=== PATIENT | male | born 1955 | race Caucasian/White ===

== ENCOUNTER 2021-06-11 07:19 | Day surgery (SDC) | payer MEDICARE, OTHER ==
[~2021-06-11 07:19] MED LIST: Midazolam 1 MG/ML 2 ML SDV ONE; Propofol 200 MG/20 ML SDV ONE; fentaNYL 100 MCG/2 ML SDV ONE
[2021-06-11] MEDS ORDERED: Sodium Chloride 0.9% 1,000 ML IV SCH (08:30)
--- NOTE | 2021-06-14 08:49 | OR ---
DATE OF PROCEDURE: 06/11/2021 SURGEON: Tutu Silva MD PROCEDURE PERFORMED: Colonoscopy. FINDINGS: Transverse colon polyp, approximately 5 mm, completely removed using cold biopsy forceps. COMPLICATIONS: None. GRADER OPERATOR: None. ANESTHESIA: MAC. PREOPERATIVE DIAGNOSIS: Screening colonoscopy. POSTOPERATIVE DIAGNOSIS: Screening colonoscopy. RISKS: Risks, benefits, alternatives, and limitations including, but not limited to infection, bleeding, perforation, false positives, and false negatives were explained to the patient who wished to proceed. PROCEDURE IN DETAIL: The patient was placed in the left lateral decubitus position. Digital rectal exam was performed without abnormality. Scope was introduced and advanced atraumatically to the ileocecal valve. A photo was taken. The scope was brought back to the ascending, transverse, descending colon, and retroflexed. No evidence of old or new blood. No masses. Within the transverse colon, the aforementioned polyp was identified and completely removed using cold biopsy forceps. No diverticulosis. No abnormalities on retroflex. Greater than 8 minutes was spent removing the scope. The prep was acceptable. Approximately 90% of the luminal surface could be seen. Tutu Silva MD /[id number]
== END 2021-06-11 11:05 | disposition home or self-care (01) ==
LOC: JP.SDS 07:19
PROVIDERS: ATTEND Surgery
DX: Z12.11 Encounter for screening for malignant neoplasm of colon (principal); D12.3 Benign neoplasm of transverse colon
CPT/HCPCS: 45380; J2250; J2704; J3010; J7030; 88305

== ENCOUNTER 2024-05-23 06:24 | Day surgery (SDC) | payer MEDICARE ==
[2024-05-23] MEDS: Sodium Chloride 0.9% 1,000 ML IV SCH (07:07)
[2024-05-23] MEDS ORDERED: Midazolam 1 MG/ML 2 ML SDV ONE (07:25)
[2024-05-23] MEDS ORDERED: Propofol 200 MG/20 ML SDV ONE (07:25)
[2024-05-23] MEDS ORDERED: fentaNYL 50 MCG/ML SDV ONE (07:25)
== END 2024-05-23 09:26 | disposition home or self-care (01) ==
LOC: JP.SDS 06:24
PROVIDERS: ATTEND Surgery
DX: Z12.11 Encounter for screening for malignant neoplasm of colon (principal); D12.2 Benign neoplasm of ascending colon; Z85.038 Personal history of other malignant neoplasm of large intestine
CPT/HCPCS: 45380; 88305; J2250; J2704; J3010; J7030; 00811-QZ

== ENCOUNTER 2024-06-24 16:56 | Emergency (ER) | payer MEDICARE ==
[2024-06-24 19:12] LABS: HEMATOCRIT 40.8 % (38.4-49.7); HEMOGLOBIN 14.9 g/dL (12.9-16.9); MEAN CORPUSCULAR HEMOGLOBIN 32.3 pg (31.6-35.5); MEAN CORPUSCULAR HGB CONC 36.5 g/dL (31.6-35.5); MEAN CORPUSCULAR VOLUME 88.5 fL (81.4-99.0); RED BLOOD CELL COUNT 4.61 M/uL (4.14-5.76); WHITE BLOOD CELL COUNT,WBC 2.4 K/uL (3.2-11.0)
[2024-06-24 19:33] LABS: ALANINE AMINOTRANSFERASE,ALT 77 U/L (12-78); ALBUMIN 3.1 g/dL (3.4-5.0); ALKALINE PHOSPHATASE 83 U/L (46-116); ASPARTATE AMNIOTRANSFERASE,AST 111 U/L (15-37); BILIRUBIN TOTAL 0.9 mg/dL (0.2-1.0); BLOOD UREA NITROGEN,BUN 15 mg/dL (7-18); CALCIUM 9.1 mg/dL (8.5-10.1); CARBON DIOXIDE,CO2 30 mmol/L (21-32); CHLORIDE,CL 101 mmol/L (100-108); CREATININE 1.4 mg/dL (0.8-1.3); EST CRCL DRUG DOSING (CG) 55.49 mL/min; ESTIMATED GFR 54 mL/min (>60); GLUCOSE RANDOM 138 mg/dL (74-106); MAGNESIUM 2.1 mg/dL (1.8-2.4); POTASSIUM,K 3.6 mmol/L (3.6-5.2); PROTEIN TOTAL,TP 6.3 g/dL (6.4-8.2); SODIUM,NA 137 mmol/L (140-148); TROPONIN I HIGH SENSITIVITY 9.9 pg/mL (<=60.3)
[2024-06-24] MEDS: Sodium Chloride 0.9% 1,000 ML IV SCH (19:34)
[2024-06-24 19:39] LABS: ANION GAP 9.6 mmol/L (5.0-14.0)
[2024-06-24 19:40] LABS: BAND ABSOLUTE MAN 0.02 K/uL; BAND PERCENT MAN 1 % (5-11); EOSINOPHILS ABSOLUTE MAN 0.02 K/uL (0.00-0.40); EOSINOPHILS PERCENT MAN 1 % (2-4); LYMPHOCYTES ABSOLUTE MAN 0.62 K/uL (0.8-3.3); LYMPHOCYTES PERCENT MAN 26 % (24-44); METAMYELOCYTE ABSOLUTE MAN 0.02 K/uL; METAMYELOCYTE PERCENT MAN 1 %; MONOCYTES ABSOLUTE MAN 0.29 K/uL (0.20-0.90); MONOCYTES PERCENT MAN 12 % (2-6); NEUTROPHILS ABSOLUTE MAN 1.42 K/uL (1.0-7.6); SEG NEUTROPHILS PERCENT MAN 59 % (36-66)
[2024-06-24 19:41] LABS: ATYPICAL LYMPHOCYTES MODERATE
[2024-06-24 19:45] LABS: PLATELET COUNT,PLT 58 K/uL (130-375)
[2024-06-24 20:37] LABS: LYME AB IgG Negative (Negative); LYME AB IgM Negative (Negative)
[2024-06-27 15:18] LABS: ANAPLASMA PHAGOCYTOPHILUM PCR Detected; BABESIA MICROTI BY PCR Not Detected; BABESIA SPECIES BY PCR Not Detected; EHRLICHIA CHAFFEENSIS BY PCR Not Detected; EHRLICHIA EWINGII/CANIS BY PCR Not Detected; EHRLICHIA MURIS-LIKE BY PCR Not Detected
== END 2024-06-24 20:57 | disposition home or self-care (01) ==
LOC: JP.ED 16:56
DX: A79.82 Anaplasmosis [A. phagocytophilum] (principal); E78.00 Pure hypercholesterolemia, unspecified; Z79.899 Other long term (current) drug therapy
CPT/HCPCS: 36415; 80053; 83690; 83735; 84484; 85025; 86618; 87468; 87469; 87484; 87798; 93005; 96360; 99285; J7030; 93010; 99284